=== PATIENT | male | born 1975 | race Caucasian/White ===

== ENCOUNTER → 2023-08-31 | Day surgery (SDC) | payer BC | LOC: SDC 14:01 | PROVIDERS: ATTEND Internal Medicine Gastroenterology | PROC: 4A0B88Z Measurement of Gastrointestinal Motility, Via Natural or Artificial Opening Endoscopic (ICD-10-PCS; principal; 2023-08-31) | DX: K21.9 Gastro-esophageal reflux disease without esophagitis (principal); G43.909 Migraine, unspecified, not intractable, without status migrainosus; R05.9 Cough, unspecified; J30.9 Allergic rhinitis, unspecified; Z79.899 Other long term (current) drug therapy | CPT/HCPCS: 91010; 91034 ==